=== PATIENT | female | born 1970 | race Caucasian/White ===

== ENCOUNTER 2021-11-23 15:56 | Emergency (ER) | payer BC ==
[~2021-11-23] VITALS: Ht 165.1 cm; Wt 83.9 kg
[2021-11-23] MEDS ORDERED: ONDANSETRON HCL INJ 2MG/ML 2ML 2 MG/ML VIAL ONE (16:22)
[2021-11-23] MEDS ORDERED: KETOROLAC TROMETHAMINE 30 MG/ML VIAL ONE (16:22)
[2021-11-23] MEDS ORDERED: SODIUM CHLORIDE 0.9% 1000ML 1,000 ML IV STA (16:42)
[2021-11-23] MEDS ORDERED: ONDANSETRON HCL INJ 2MG/ML 2ML 2 MG/ML VIAL IV STA (16:42)
[2021-11-23] MEDS ORDERED: IOPAMIDOL 370 MG/ML 100 ML INFUS..BTL INJ ONE (17:20)
[2021-11-23] MEDS ORDERED: CIPRO500 MG PO (18:13)
[2021-11-23] MEDS ORDERED: METRONIDAZOLE500 MG PO (18:13)
[2021-11-23] MEDS ORDERED: METRONIDAZOLE 500MG/NS 100ML 100 ML IV ONE ×2 (18:15→18:28)
[2021-11-23 19:25] VITALS: BP 132/80
== END 2021-11-23 19:25 | disposition home or self-care (01) ==
LOC: FSED 16:04
DX: R10.32 Left lower quadrant pain (principal); R11.2 Nausea with vomiting, unspecified; E78.5 Hyperlipidemia, unspecified; E03.9 Hypothyroidism, unspecified; F41.9 Anxiety disorder, unspecified
CPT/HCPCS: 74177; 80048; 80076; 81003; 85025; 96374; 99284; J1885; J2405; Q9967